=== PATIENT | female | born 1965 | race Caucasian/White ===

== ENCOUNTER 2018-10-23 18:31 | Emergency (ER) | payer OTHER ==
[~2018-10-23] VITALS: Ht 157.5 cm; Wt 61.3 kg
[2018-10-23 18:52] VITALS: Ht 157.5 cm; Wt 61.3 kg
[2018-10-23] MEDS ORDERED: SOD CHLORIDE 0.9% 1,000 ML IV STA (22:45)
[2018-10-23] MEDS ORDERED: ONDANSETRON 4 MG INJ IV STA (22:45)
[2018-10-23] MEDS ORDERED: FAMOTIDINE 20 MG INJ IV STA (22:45)
[2018-10-23] MEDS ORDERED: morphine 4 MG/ML VIAL IV STA (22:45)
[2018-10-23] MEDS ORDERED: CALC-143 PO (23:58)
[2018-10-23] MEDS ORDERED: CYAN500T46 PO (23:58)
[2018-10-23] MEDS ORDERED: ASCO500C7 PO (23:58)
[2018-10-24] MEDS ORDERED: HYDROmorphONE 1 MG/ML SYG IV STA (03:05)
[2018-10-24 03:30] VITALS: BP 129/79; PULSE 88; RESP 18
--- NOTE | 2018-10-24 03:42 | ERD ---
ER Documentation Chief Complaint Chief Complaint PT reports RUQ sent by pcp for r/o pancreatitis HPI Is a 52-year-old female with epigastric abdominal pain that was sent in by her primary care physician to rule out pancreatitis. Apparently. She denies any history of pancreatitis and had an episode last year. Denies any fevers chills nausea vomiting. Pain is mild to moderate intensity radiates to her back. Denies any current issues. ROS All systems reviewed and are negative except as per history of present illness. Medications Home Meds Reported Medications Calcium Citrate/Vitamin D (Citracal-Vitamin D 200 MG-250) 1 Each Tablet, 1 EACH PO BID, TAB 10/23/18 Ascorbic Acid* (Vitamin C*) 500 Mg Capsule.sa, 500 MG PO DAILY, CAP 10/23/18 Cyanocobalamin* (Vitamin B12*) 500 Mcg Tab, 500 MCG PO DAILY, TAB 10/23/18 Allergies Allergies: Coded Allergies: No Known Allergy (Unverified , 10/23/18) PMhx/Soc Medical and Surgical Hx: pt denies Surgical Hx History of Surgery: No Anesthesia Reaction: No Hx Neurological Disorder: No Hx Respiratory Disorders: No Hx Cardiac Disorders: No Hx Psychiatric Problems: No Hx Miscellaneous Medical Probl: Yes (Hx pancreatitis) Hx Alcohol Use: No Hx Substance Use: No Hx Tobacco Use: No Smoking Status: Never smoker Physical Exam Vitals Vital Signs Date Temp Pulse Resp B/P (MAP) Pulse Ox O2 O2 Flow FiO2 Time Delivery Rate 10/24/18 88 18 129/79 97 Room Air 03:30 (96) 10/24/18 95 22 156/114 98 Room Air 01:03 (128) 10/23/18 88 18 157/90 97 Room Air 23:30 (112) 10/23/18 98.5 100 20 141/69 100 18:52 (93) Physical Exam Const: No acute distress Head: Atraumatic Eyes: Normal Conjunctiva ENT: Normal External Ears, Nose and Mouth. Neck: Full range of motion. No meningismus. Resp: Clear to auscultation bilaterally Cardio: Regular rate and rhythm, no murmurs Abd: Soft, non tender, non distended. Normal bowel sounds Skin: No petechiae or rashes Back: No midline or flank tenderness Ext: No cyanosis, or edema Neur: Awake and alert Psych: Normal Mood and Affect Result Diagram: 10/23/18 2250 10/23/18 8480 Results 24 hrs Laboratory Tests Test 10/23/18 22:50 10/23/18 22:53 10/23/18 23:30 White Blood Count 4.8 10^3/ul Red Blood Count 3.33 10^6/ul Hemoglobin 9.5 g/dl Hematocrit 28.8 % Mean Corpuscular Volume 86.5 fl Mean Corpuscular Hemoglobin 28.5 pg Mean Corpuscular 33.0 g/dl Hemoglobin Concent Red Cell Distribution Width 13.0 % Platelet Count 174 10^3/UL Mean Platelet Volume 12.7 fl Immature Granulocytes % 0.300 % Neutrophils % 49.5 % Lymphocytes % 37.8 % Monocytes % 7.6 % Eosinophils % 3.8 % Basophils % 1.0 % Nucleated Red Blood Cells % 1.0 /100WBC Immature Granulocytes # 0.010 10^3/ul Neutrophils # 2.0 10^3/ul Lymphocytes # 1.5 10^3/ul Monocytes # 0.3 10^3/ul Eosinophils # 0.2 10^3/ul Basophils # 0.0 10^3/ul Nucleated Red Blood Cells # 0.0 10^3/ul Urine Color STRAW Urine Clarity CLEAR Urine pH 5.0 Urine Specific [place] 1.032 Urine Ketones TRACE mg/dL Urine Nitrite NEGATIVE mg/dL Urine Bilirubin NEGATIVE mg/dL Urine Urobilinogen NEGATIVE mg/dL Urine Leukocyte Esterase NEGATIVE Elisa/ul Urine Microscopic RBC 1 /HPF Urine Microscopic WBC 0 /HPF Urine Hemoglobin 1+ mg/dL Urine Glucose 3+ mg/dL Urine Total Protein NEGATIVE mg/dl Bedside Urine pH (LAB) 5.0 Bedside Urine Protein (LAB) Negative Bedside Urine Glucose (UA) 0.50% Bedside Urine Ketones (LAB) Trace Bedside Urine Blood 1+ Bedside Urine Nitrite (LAB) Negative Bedside Urine Leukocyte Esterase Negative (L Sodium Level 133 mmol/L Potassium Level 4.2 mmol/L Chloride Level 100 mmol/L Carbon Dioxide Level 19 mmol/L Anion Gap 14 Blood Urea Nitrogen 17 mg/dl Creatinine 0.38 mg/dl Est Glomerular Filtrat > 60 mL/min Rate mL/min Glucose Level 340 mg/dl Calcium Level 8.1 mg/dl Total Bilirubin 0.3 mg/dl Direct Bilirubin 0.00 mg/dl Indirect Bilirubin 0.3 mg/dl Aspartate Amino Transf (AST/SGOT) 30 IU/L Alanine 10 IU/L Aminotransferase (ALT/SGPT) Alkaline Phosphatase 131 IU/L Troponin I < 0.012 ng/ml Total Protein 7.4 g/dl Albumin 3.5 g/dl Globulin 3.90 g/dl Albumin/Globulin Ratio 0.89 Lipase 507 U/L Current Medications Medications Dose Sig/Codi Start Time Status Last (Trade) Ordered Route PRN Stop Time Admin Dose Reason Admin Sodium 1,000 ml @ Q1H STAT 10/23/18 DC 10/23/18 Chloride 1,000 mls/hr IV 22:45 10/23/18 22:57 23:44 Morphine 4 mg ONCE STAT 10/23/18 DC 10/23/18 Sulfate IV 22:45 10/23/18 22:57 (morphine) 22:48 Ondansetron 4 mg ONCE STAT 10/23/18 DC 10/23/18 HCl (Zofran IV 22:45 10/23/18 22:57 Inj) 22:48 Famotidine 20 mg ONCE STAT 10/23/18 DC 10/23/18 (Pepcid Iv) IV 22:45 10/23/18 22:57 22:48 1 mg ONCE STAT 10/24/18 DC 10/24/18 Hydromorphone IV 03:05 10/24/18 03:13 HCl 03:06 (Dilaudid) Procedures/MDM Emergency department course: Patient seen and evaluated charges. Placed in bed from evaluation. Had blood work done. Given pain medication. Had stat CT scan. Medical decision making: This is a very pleasant 52-year-old female with evidence of acute pancreatitis on CT. Patient has been kept n.p.o. and given fluid hydration and pain medication. Patient is capitated to [facility] has been accepted in transfer the by TERRELL Harrison Departure Diagnosis: Primary Impression: Abdominal pain Abdominal location: epigastric Qualified Codes: R10.13 - Epigastric pain Condition: Serious SARA AVILA Oct 24, 2018 03:42
== END 2018-10-24 03:50 | disposition short-term general hospital (02) ==
LOC: E/R 18:31
DX: R10.13 Epigastric pain (principal)
CPT/HCPCS: 36415; 71045; 74176; 80053; 81001; 83690; 84484; 85025; 93005; 96374; 96375; J1170; J2270; J2405; J7030; Z7502; Z7610; 81003